=== PATIENT | male | born 1990 | race Caucasian/White ===

== ENCOUNTER 2018-03-01 08:36 | Emergency (ER) | payer OTHER ==
[2018-03-01] MEDS ORDERED: ceFAZolin 1 GM Vial IM ONE (08:43)
[2018-03-01] MEDS ORDERED: Bupivacaine 0.25% 10 ML SDV INJECT ONE (08:43)
--- NOTE | 2018-03-01 08:44 | EDM.PDOC ---
ED HPI GENERAL MEDICAL PROBLEM - General Chief Complaint: Laceration Stated Complaint: LEFT MIDDLE FINGER CUT Time Seen by Provider: 03/01/18 08:39 - History of Present Illness INITIAL COMMENTS - FREE TEXT/NARRATIVE: HISTORY AND PHYSICAL: History of present illness: Patient is a 27-year-old male presents with a concern of injury to third digit of his left hand in which she had a nail avulsion and laceration is up-to-date on his tetanus he denies other trauma or concern this occurred at work and was via blunt force trauma Review of systems: As per history of present illness and below otherwise all systems reviewed and negative. Past medical history: As per history of present illness and as reviewed below otherwise noncontributory. Surgical history: As per history of present illness and as reviewed below otherwise noncontributory. Social history: No reported history of drug or alcohol abuse. Family history: As per history of present illness and as reviewed below otherwise noncontributory. Physical exam: HEENT: Atraumatic, normocephalic, pupils reactive, negative for conjunctival pallor or scleral icterus, mucous membranes moist, throat clear, neck supple, nontender, trachea midline. Lungs: Clear to auscultation, breath sounds equal bilaterally, chest nontender. Heart: S1S2, regular, negative for clicks, rubs, or JVD. Abdomen: Soft, nondistended, nontender. Negative for masses or hepatosplenomegaly. Negative for costovertebral tenderness. Pelvis: Stable nontender. Genitourinary: Deferred. Rectal: Deferred. Extremities: Patient has a approximately 2 cm laceration with nail avulsion and third digit of his left hand is good hemostasis CMS neurovascular is unremarkable Neuro: Awake, alert, oriented. Cranial nerves II through XII unremarkable. Cerebellum unremarkable. Motor and sensory unremarkable throughout. Exam nonfocal. Diagnostics: X-ray left hand Therapeutics: Patient was anesthetized with bupivacaine via digital block irrigated with copious amounts 0.9 normal saline prepped and draped in sterile manner closed with 4-0 nylon interrupted suture bacitracin and tube gauze splint was applied Impression: #1 acute injury left hand (third digit) Definitive disposition and diagnosis as appropriate pending reevaluation and review of above. left third digit Pain Score (Numeric/FACES): 0 - Related Data Allergies Allergy/AdvReac Type Severity Reaction Status Date / Time No Known Allergies Allergy Verified 03/01/18 08:45 Home Meds: Home Meds . [No Known Home Meds] 03/01/18 [History] ED ROS GENERAL - Review of Systems Review Of Systems: ROS reveals no pertinent complaints other than HPI. ED EXAM, SKIN/RASH Exam: See Below (Dictation) Course - Vital Signs Last Recorded V/S: Last Vital Signs Temp 35.8 C 03/01/18 08:45 Pulse 91 03/01/18 08:45 Resp 20 03/01/18 08:45 BP 141/92 H 03/01/18 08:45 Pulse Ox 96 03/01/18 08:45 - Orders/Labs/Meds Orders: Active Orders 24 hr Category Date Time Status Fingers Third Digit Lt F2 [CR] Stat Exams 03/01/18 08:43 Taken Water For Injection, Sterile [Sterile Water for Med 03/01/18 09:00 Active Injection] 20 ml INJECT STAT Medication Orders Sterile Water (Sterile Water For Injection) 20 ml INJECT STAT NEFTALI Last Admin: 03/01/18 09:00 Dose: 20 ml Meds: Medications Generic Name Dose Route Start Last Admin Trade Name Freq PRN Reason Stop Dose Admin Sterile Water 20 ml 03/01/18 09:00 03/01/18 09:00 Sterile Water For Injection INJECT 20 ml STAT NEFTALI Administration Discontinued Medications Generic Name Dose Route Start Last Admin Trade Name Freq PRN Reason Stop Dose Admin Bupivacaine HCl 10 ml 03/01/18 08:43 03/01/18 09:00 Sensorcaine-Mpf 0.25% INJECT 03/01/18 08:44 10 ml ONETIME ONE Administration Cefazolin Sodium 1 gm 03/01/18 08:43 03/01/18 09:00 Ancef IM 03/01/18 08:44 1 gm ONETIME ONE Administration Sterile Water Confirm 03/01/18 08:52 03/01/18 08:59 Sterile Water For Injection Administered 03/01/18 08:53 Not Given Dose 20 mls @ as directed .ROUTE .STK-MED ONE Departure - Departure Time of Disposition: 09:22 Disposition: Home, Self-Care 01 Condition: Good Clinical Impression: Hand injury - Discharge Information Forms: ED Department Discharge Additional Instructions: The following information is given to patients seen in the emergency department who are being discharged to home. This information is to outline your options for follow-up care. We provide all patients seen in our emergency department with a follow-up referral. The need for follow-up, as well as the timing and circumstances, are variable depending upon the specifics of your emergency department visit. If you don't have a primary care physician on staff, we will provide you with a referral. We always advise you to contact your personal physician following an emergency department visit to inform them of the circumstance of the visit and for follow-up with them and/or the need for any referrals to a consulting specialist. The emergency department will also refer you to a specialist when appropriate. This referral assures that you have the opportunity for followup care with a specialist. All of these measure are taken in an effort to provide you with optimal care, which includes your followup. Under all circumstances we always encourage you to contact your private physician who remains a resource for coordinating your care. When calling for followup care, please make the office aware that this follow-up is from your recent emergency room visit. If for any reason you are refused follow-up, please contact the [facility] emergency department at and asked to speak to the emergency department charge nurse. [facility] specialty clinic-Plastics [address] [place] [address] [address] [place] [address] Keflex as prescribed and follow-up hand surgery above call to schedule appointment suture removal 10-14 days return as needed as discussed dressing changes splint as directed - My Orders Last 24 Hours: My Active Orders 03/01/18 08:43 Fingers Third Digit Lt F2 [CR] Stat 03/01/18 09:00 Water For Injection, Sterile [Sterile Water for Injection] 20 ml INJECT STAT - Assessment/Plan Last 24 Hours: My Active Orders 03/01/18 08:43 Fingers Third Digit Lt F2 [CR] Stat 03/01/18 09:00 Water For Injection, Sterile [Sterile Water for Injection] 20 ml INJECT STAT
[2018-03-01] MEDS ORDERED: Water For Injection, Sterile 20 ML ONE (08:52)
[2018-03-01] MEDS ORDERED: Water For Injection, Sterile 20 ML SDV INJECT SCH (09:00)
[2018-03-01] MEDS ORDERED: Bacitracin Oint 1 GM U/D Packet TOP ONE (09:37)
--- NOTE | 2018-03-03 18:33 | CR ---
EXAM DATE: 03/01/18 PATIENT'S AGE: 27 Patient: GALE AMANDA Facility: [place], [place] Site . Site : 1990 Study: XRay Extremity Left third digit [id number]/7/2018 9:01:58 AM Ordering Physician: Tone Jackson Final Report: HISTORY: Left middle finger injury. TECHNIQUE: Three views of the middle finger/third digit of the left hand. COMPARISON: No prior. FINDINGS: There is a soft tissue defect involving the distal middle finger of left hand compatible with recent trauma. Small amount of soft tissue gas. No acute fracture. No radiopaque foreign body. Joint spaces maintained. No malalignment. IMPRESSION: 1. Soft tissue injury involving the distal aspect of the left middle finger. Small amount of associated soft tissue gas. 2. No acute fracture. Dictated by Houston Goodrich MD @ 03/01/2018 9:15:02 AM Dictated by: Houston Goodrich MD @ 03/01/2018 09:15:06 (Electronic Signature) Report Signed by Proxy. GLADYS
== END 2018-03-01 09:51 | disposition home or self-care (01) ==
LOC: MW.ED 08:36
DX: S61.313A Laceration without foreign body of left middle finger with damage to nail, initial encounter (principal); X58.XXXA Exposure to other specified factors, initial encounter; Y99.0 Civilian activity done for income or pay
CPT/HCPCS: 11730; 73140; 96372; 99283; J0690

== ENCOUNTER 2018-11-15 09:23 | Emergency (ER) | payer OTHER ==
--- NOTE | 2018-11-15 09:33 | EDM.PDOC ---
ED HPI GENERAL MEDICAL PROBLEM - General Chief Complaint: ENT Problem Stated Complaint: SORE THROAT Time Seen by Provider: 11/15/18 09:29 - History of Present Illness INITIAL COMMENTS - FREE TEXT/NARRATIVE: HISTORY AND PHYSICAL: History of present illness: Patient's 28-year-old white male presents with concern of sore throat he states she's had a tactile fever he denies nausea vomiting denies cough chest pain abdominal pain or other concern. Review of systems: As per history of present illness and below otherwise all systems reviewed and negative. Past medical history: As per history of present illness and as reviewed below otherwise noncontributory. Surgical history: As per history of present illness and as reviewed below otherwise noncontributory. Social history: No reported history of drug or alcohol abuse. Family history: As per history of present illness and as reviewed below otherwise noncontributory. Physical exam: HEENT: Atraumatic, normocephalic, pupils reactive, negative for conjunctival pallor or scleral icterus, mucous membranes moist, throat minimal injection no pustular exudates no peritonsillar fullness uvular deviation trismus or hot potato voice, neck supple, nontender, trachea midline. Lungs: Clear to auscultation, breath sounds equal bilaterally, chest nontender. Heart: S1S2, regular, negative for clicks, rubs, or JVD. Abdomen: Soft, nondistended, nontender. Negative for masses or hepatosplenomegaly. Negative for costovertebral tenderness. Pelvis: Stable nontender. Genitourinary: Deferred. Rectal: Deferred. Extremities: Atraumatic, negative for cords or calf pain. Neurovascular unremarkable. Neuro: Awake, alert, oriented. Cranial nerves II through XII unremarkable. Cerebellum unremarkable. Motor and sensory unremarkable throughout. Exam nonfocal. Diagnostics: Rapid strep Therapeutics: None Impression: #1 sore throat Definitive disposition and diagnosis as appropriate pending reevaluation and review of above. Throat Pain Score (Numeric/FACES): 7 - Related Data Allergies Allergy/AdvReac Type Severity Reaction Status Date / Time No Known Allergies Allergy Verified 03/01/18 08:45 Home Meds: Home Meds . [No Known Home Meds] 03/01/18 [History] Past Medical History - Past Health History Medical/Surgical History: Denies Medical/Surgical History - Infectious Disease History Infectious Disease History: Reports: None Social & Family History - Family History Family Medical History: Noncontributory ED ROS GENERAL - Review of Systems Review Of Systems: ROS reveals no pertinent complaints other than HPI. ED EXAM, GENERAL - Physical Exam Exam: See Below (See dictated) Course - Vital Signs Last Recorded V/S: Last Vital Signs Temp 36.2 C 11/15/18 09:50 Pulse 74 11/15/18 09:50 Resp 20 11/15/18 09:50 BP 126/69 11/15/18 09:50 Pulse Ox 98 11/15/18 09:50 Departure - Departure Time of Disposition: :33 Disposition: Home, Self-Care 01 Condition: Good Clinical Impression: Streptococcal pharyngitis - Discharge Information Forms: ED Department Discharge Additional Instructions: The following information is given to patients seen in the emergency department who are being discharged to home. This information is to outline your options for follow-up care. We provide all patients seen in our emergency department with a follow-up referral. The need for follow-up, as well as the timing and circumstances, are variable depending upon the specifics of your emergency department visit. If you don't have a primary care physician on staff, we will provide you with a referral. We always advise you to contact your personal physician following an emergency department visit to inform them of the circumstance of the visit and for follow-up with them and/or the need for any referrals to a consulting specialist. The emergency department will also refer you to a specialist when appropriate. This referral assures that you have the opportunity for followup care with a specialist. All of these measure are taken in an effort to provide you with optimal care, which includes your followup. Under all circumstances we always encourage you to contact your private physician who remains a resource for coordinating your care. When calling for followup care, please make the office aware that this follow-up is from your recent emergency room visit. If for any reason you are refused follow-up, please contact the [facility] emergency department at and asked to speak to the emergency department charge nurse. Augmentin as prescribed Motrin/Tylenol try to push fluids follow up primary medical doctor as needed as discussed return as needed as discussed
== END 2018-11-15 10:35 | disposition home or self-care (01) ==
LOC: MW.ED 09:23
DX: J02.0 Streptococcal pharyngitis (principal)
CPT/HCPCS: 87880-QW; 99282; 99283